=== PATIENT | female | born 2000 | race American Indian/Alaskan Native ===

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

== ENCOUNTER 2021-10-08 09:09 | Emergency (ER) | payer SELFPAY ==
[2021-10-08] MEDS ORDERED: KETOROLAC 10 MG TAB PO ONE (15:43)
[2021-10-08] MEDS ORDERED: predniSONE 20 MG TAB PO ONE (15:43)
[2021-10-08] MEDS ORDERED: BENZONATATE 100 MG CAP PO ONE (15:44)
--- NOTE | 2021-10-08 15:47 | Emergency Department Report ---
- General Chief Complaint: Upper Respiratory Infection Stated Complaint: SWOLLEN TONSILS/EAR INFECTION Time Seen by Provider: 10/08/21 15:43 Source: patient Mode of arrival: Ambulatory Limitations: No Limitations - History of Present Illness Initial Comments: 21-year-old black female with no past medical history presents to the emergency department for evaluation of few day history of sore throat, earache, cough, and congestion. She states that she feels like she has had a fever but has not taken her temperature at home. She denies headache, abdominal pain, nausea, and vomiting. She denies any sick contacts. MD Complaint: fever (Subjective only), cough, sore throat, rhinorrhea, nasal congestion, sinus pain -: Gradual, days(s) (2-3) Severity: moderate Severity scale (0 -10): 8 Quality: aching Consistency: constant Associated Symptoms: fever (Subjective), headache, rhinorrhea, nasal congestion, sore throat, cough, ear pain. denies: chills, myalgias, diaphoresis, stiff neck, chest pain, shortness of breath, abdominal pain, nausea, vomiting, diarrhea, dysuria, rash, hoarseness Treatments Prior to Arrival: none - Related Data Previous Rx's Medication Instructions Recorded Last Taken Type Gentamicin 0.3% Ophth Soln 1 drops OP Q4H #10 ml 02/22/14 Unknown Rx valACYclovir [Valtrex] 500 mg PO BID #20 tab 01/22/18 Unknown Rx Sulfamethoxazole/Trimethoprim 1 each PO BID #10 tablet 04/01/18 Unknown Rx [Bactrim DS TAB] Dicyclomine [Bentyl] 20 mg PO Q6H PRN #20 tablet 10/05/18 Unknown Rx Ondansetron [Zofran Odt] 4 mg PO Q6HR #15 tab.rapdis 10/05/18 Unknown Rx Cyclobenzaprine [Flexeril] 10 mg PO Q8H PRN #12 tablet 07/11/19 Unknown Rx Ibuprofen [Motrin] 600 mg PO Q8H PRN #20 tablet 07/11/19 Unknown Rx Ibuprofen [Motrin 800 MG tab] 800 mg PO Q8HR PRN #30 tablet 01/24/20 Unknown Rx Nitrofurantoin Harney/M-Cryst 100 mg PO BID 7 Days #14 capsule 01/24/20 Unknown Rx [Macrobid CAP] Brompheniramine/Pseudoephed/Dm 10 ml PO TID PRN #120 ml 10/08/21 Unknown Rx [Bromfed Dm Cough Syrup] Levocetirizine Dihydrochloride 5 mg PO QPM #15 tab 10/08/21 Unknown Rx [Xyzal] Prednisone [predniSONE 10 mg 10 mg PO .TAPER #1 pack 10/08/21 Unknown Rx (6-Day Pack, 21 Tabs)] Allergies Allergy/AdvReac Type Severity Reaction Status Date / Time No Known Allergies Allergy Verified 10/05/18 15:48 ED Review of Systems ROS: Stated complaint: SWOLLEN TONSILS/EAR INFECTION Other details as noted in HPI Comment: All other systems reviewed and negative Constitutional: denies: chills, fever Eyes: denies: eye pain, eye discharge, vision change ENT: ear pain, throat pain, congestion Respiratory: cough. denies: shortness of breath, SOB with exertion, SOB at rest, stridor, wheezing Cardiovascular: denies: chest pain, palpitations, dyspnea on exertion, orthopnea, edema, syncope, paroxysmal nocturnal dyspnea Gastrointestinal: denies: abdominal pain, nausea, vomiting Genitourinary: denies: urgency, dysuria, frequency Musculoskeletal: denies: back pain Skin: denies: rash, lesions Neurological: denies: headache, weakness Hematological/Lymphatic: denies: easy bruising ED Past Medical Hx - Past Medical History Previous Medical History?: Yes Additional medical history: Bronchitis - Surgical History Past Surgical History?: No - Social History Smoking Status: Never Smoker - Medications Home Medications: Home Medications Medication Instructions Recorded Confirmed Last Taken Type Gentamicin 0.3% Ophth Soln 1 drops OP Q4H #10 ml 02/22/14 Unknown Rx valACYclovir [Valtrex] 500 mg PO BID #20 tab 01/22/18 Unknown Rx Sulfamethoxazole/Trimethoprim 1 each PO BID #10 tablet 04/01/18 Unknown Rx [Bactrim DS TAB] Dicyclomine [Bentyl] 20 mg PO Q6H PRN #20 tablet 10/05/18 Unknown Rx Ondansetron [Zofran Odt] 4 mg PO Q6HR #15 tab.rapdis 10/05/18 Unknown Rx Cyclobenzaprine [Flexeril] 10 mg PO Q8H PRN #12 tablet 07/11/19 Unknown Rx Ibuprofen [Motrin] 600 mg PO Q8H PRN #20 tablet 07/11/19 Unknown Rx Ibuprofen [Motrin 800 MG tab] 800 mg PO Q8HR PRN #30 tablet 01/24/20 Unknown Rx Nitrofurantoin Harney/M-Cryst 100 mg PO BID 7 Days #14 capsule 01/24/20 Unknown Rx [Macrobid CAP] Brompheniramine/Pseudoephed/Dm 10 ml PO TID PRN #120 ml 10/08/21 Unknown Rx [Bromfed Dm Cough Syrup] Levocetirizine Dihydrochloride 5 mg PO QPM #15 tab 10/08/21 Unknown Rx [Xyzal] Prednisone [predniSONE 10 mg 10 mg PO .TAPER #1 pack 10/08/21 Unknown Rx (6-Day Pack, 21 Tabs)] ED Physical Exam - General Limitations: No Limitations General appearance: alert, in no apparent distress - Head Head exam: Present: atraumatic, normocephalic - Eye Eye exam: Present: normal appearance. Absent: conjunctival injection - ENT ENT exam: Present: TM's normal bilaterally. Absent: normal exam (Bilateral nasal mucosal edema along with bilateral turbinate swelling and pain on palpation to bilateral maxillary and frontal sinus areas.), normal orophraynx (Erythema noted to posterior oropharynx) - Expanded ENT Exam Expanded Mouth exam: Present: normal external inspection Throat exam: Positive: tonsillar erythema, tonsillomegaly. Negative: tonsillar exudate, R peritonsillar mass, L peritonsillar mass - Neck Neck exam: Present: normal inspection. Absent: lymphadenopathy - Respiratory Respiratory exam: Present: normal lung sounds bilaterally. Absent: respiratory distress, wheezes, rales, rhonchi, stridor, chest wall tenderness - Cardiovascular Cardiovascular Exam: Present: regular rate, normal heart sounds - GI/Abdominal GI/Abdominal exam: Present: soft, normal bowel sounds. Absent: distended, tenderness, guarding, rigid - Extremities Exam Extremities exam: Present: normal inspection, normal capillary refill. Absent: pedal edema, joint swelling, calf tenderness - Back Exam Back exam: Present: normal inspection. Absent: CVA tenderness (R), CVA tenderness (L), vertebral tenderness - Neurological Exam Neurological exam: Present: alert, oriented X3, CN II-XII intact. Absent: normal gait - Psychiatric Psychiatric exam: Present: normal affect, normal mood - Skin Skin exam: Present: warm, dry, intact, normal color ED Course Vital Signs 10/08/21 10:08 Temperature 99.1 F Pulse Rate 75 Respiratory 20 Rate Blood Pressure 122/65 O2 Sat by Pulse 98 Oximetry ED Medical Decision Making - Medical Decision Making 21-year-old black female with no past medical history presents to the emergency department for evaluation of few day history of sore throat, earache, cough, and congestion. She states that she feels like she has had a fever but has not taken her temperature at home. She denies headache, abdominal pain, nausea, and vomiting. She denies any sick contacts. Exam consistent with sinusitis. Patient will given prednisone 60 mg p.o., 1 Tessalon Perle 100 mg, 1 Tylenol with codeine, and 1 Toradol 10 mg p.o. while in the emergency department then discharged home with Medrol Dosepak, Xyzal, and Bromfed to take as directed. She is advised to take medications and follow-up with primary care provider if no improvement or worsening symptoms. She is advised to return to the emergency department for any concerning symptoms. She verbalized understanding of and agreement with plan of care. Critical care attestation.: If time is entered above; I have spent that time in minutes in the direct care of this critically ill patient, excluding procedure time. ED Disposition Clinical Impression: Sinusitis Qualifiers: Sinusitis location: frontal Chronicity: acute Recurrence: non-recurrent Qualified Code(s): J01.10 - Acute frontal sinusitis, unspecified Disposition: 01 HOME / SELF CARE / HOMELESS Is pt being admited?: No Does the pt Need Aspirin: No Condition: Stable Instructions: Sinusitis, Adult, [id number], Upper Respiratory Infection, Adult, [id number] Additional Instructions: Take medications as prescribed. Follow-up with primary care provider if no improvement or worsening symptoms. Return to the emergency department as needed. Prescriptions: Brompheniramine/Pseudoephed/Dm [Bromfed Dm Cough Syrup] 10 ml PO TID PRN #120 ml PRN Reason: Cough Prednisone [predniSONE 10 mg (6-Day Pack, 21 Tabs)] 10 mg PO .TAPER #1 pack Levocetirizine Dihydrochloride [Xyzal] 5 mg PO QPM #15 tab Referrals: NOAH THAPA MD [Staff Physician] - 3-5 Days Forms: Work/School Release Form(ED) Time of Disposition: 15:47
[2021-10-08 16:30] VITALS: BP 118/70
== END 2021-10-08 16:30 | disposition home or self-care (01) ==
LOC: ED 09:09
DX: J32.9 Chronic sinusitis, unspecified (principal)
CPT/HCPCS: 99282